=== PATIENT | female | born 1990 | race Two or more races ===

== ENCOUNTER 2021-11-29 20:22 | Emergency (ER) | payer OTHER ==
[2021-11-29 20:34] VITALS: BP 113/72; PULSE 76; TEMP 98.7; BMI 27.2
[2021-11-29] MEDS ORDERED: LIDOCAINE PATCH REMOVAL MC SCH (22:00)
[2021-11-29] MEDS ORDERED: ACETAMINOPHEN 325 MG TABLET (FP) PO ONE (23:33)
[2021-11-29] MEDS ORDERED: IBUPROFEN 600 MG TABLET (FP) PO ONE ×2 (23:33→23:38)
[2021-11-29] MEDS ORDERED: LIDOCAINE 5% TOPICAL PATCH TP ONE (23:33)
[2021-11-29] MEDS ORDERED: CYCLOBENZAPRINE HCL 10 MG TABLET (FP) PO ONE (23:33)
[2021-11-29] MEDS ORDERED: CYCLOBENZAPRINE HCL 10 MG TABLET (FP) ONE (23:39)
[2021-11-29] MEDS ORDERED: ACETAMINOPHEN 325 MG TABLET (FP) ONE (23:39)
[2021-11-29] MEDS ORDERED: LIDOCAINE 5% TOPICAL PATCH ONE (23:39)
== END 2021-11-29 23:46 | disposition home or self-care (01) ==
LOC: JERFT 20:22
DX: M54.50 Low back pain, unspecified (principal); M79.604 Pain in right leg; W19.XXXA Unspecified fall, initial encounter
CPT/HCPCS: 73552-TC-RT-FY; 73560-TC-RT-FY; 73610-TC-RT-FY; 73630-TC-RT-FY; 99284-25